=== PATIENT | female | born 1985 | race American Indian/Alaskan Native ===

== ENCOUNTER 2018-11-14 19:28 | Emergency (ER) | payer OTHER ==
[~2018-11-14] VITALS: Ht 157.5 cm; Wt 70.3 kg
[~2018-11-14 19:28] MED LIST: MULTI VITAMIN1 EACH PO; PATADAY2.5 ML OPTH
[2018-11-14] MEDS ORDERED: PERCOCET 5-3251 EACH PO (19:39)
[2018-11-14] MEDS ORDERED: COCONUT OIL100 GM MISC (19:39)
[2018-11-14] MEDS ORDERED: MACROBID 100 M100 MG PO (23:57)
[2018-11-14] MEDS ORDERED: PYRIDIUM200 MG PO (23:57)
== END 2018-11-15 00:33 | disposition home or self-care (01) ==
LOC: ED 19:28
DX: N39.0 Urinary tract infection, site not specified (principal); Z91.02 Food additives allergy status
CPT/HCPCS: 71260; 81001; 87088; 96360; 96361; 99285-25; J7030; Q9967